=== PATIENT | female | born 1995 | race Caucasian/White ===

== ENCOUNTER 2022-07-12 21:01 | Inpatient (IN) | payer BC, OTHER ==
[2022-07-12] VITALS (9 sets, daily range): BP systolic 108–136; BP diastolic 56–96; PULSE 67–96; TEMP 97.5
[~2022-07-12] VITALS: Ht 160 cm; Wt 89.5 kg
[~2022-07-12 21:01] MED LIST: PRENATAL TABLET PO
--- NOTE | 2022-07-12 21:10 | NUR ---
PT TO UNIT AMBULATORY WITH SPOUSE WITH COMPLAINTS OF CTX THAT HAVE BECOME MORE INTENSE SINCE APPROXIMATELY 1900 THIS EVENING. PT ORIENTED TO ROOM, CHANGED INTO GOWN. EFMX2 APPLIED. PT DENIES LOF OR VAGINAL BLEEDING. VS OBTAINED, SVE PERFORMED.
[2022-07-12 21:58] LABS: BASO % 0.3 % (0.0-2.0); EOS # 0.1 K/mm3 (0.0-0.7); EOS % 0.5 % (0.0-4.0); GRAN # 11.4 K/mm3 (1.4-6.5); GRAN % 76.1 % (42.2-75.2); HEMATOCRIT 38.7 % (37.0-47.0); HEMOGLOBIN 13.1 g/dl (12.5-16.0); LYMPH # 2.6 K/mm3 (1.2-3.4); LYMPH % 17.3 % (20.0-51.0); MEAN CELL VOLUME 86 fl (80.0-100.0); MEAN CORPUSCULAR HEMOGLOBIN 29 pg (27-31); MEAN CORPUSCULAR HGB CONC 34 g/dl (33.0-37.0); MEAN PLATELET VOLUME 11.2 fl (7.4-10.4); MONO # 0.8 K/mm3 (0.1-0.6); MONO % 5.4 % (1.7-9.3); PLATELET COUNT 225 K/mm3 (130-400); RED BLOOD COUNT 4.48 M/mm3 (4.10-5.30); REDCELL DISTRIBUTION WIDTH-CV 12.8 % (11.5-14.5)
--- NOTE | 2022-07-12 22:28 | NUR ---
220- Chapin SONI CRNA IN ROOM FOR EPIDURAL PLACEMENT, PT SITTING AT BEDSIDE. 2206- TEST GIVEN BY Chapin SONI CRNA. PT TOLERATED WELL. 2209- PT REPOSITIONED TO [facility]. 2214- THOMAS MOSESIANS IN ROOM, PT HAS HAD NO RELIEF FOLLOWING EPIDURAL PLACEMENT AT 2006. LAUREL GUZMAN TO REPLACE EPIDURAL. PT SITTING UP AT BEDSIDE. 2222- INTRATHECAL PLACED BY THOMAS, PT TOLERATED WELL. 2224- TEST DOSE GIVEN BY Chapin SONI CRNA. PT TOLERATED WELL. 2228- REPOSITIONED TO RIGHT WEDGE. PT STATES HER LEGS FEEL WARM AND TINGLING.
[2022-07-13] VITALS (51 sets, daily range): BP systolic 102–157; BP diastolic 56–99; PULSE 71–115; TEMP 97.7–99.5
--- NOTE | 2022-07-13 04:09 | NUR ---
IN ROOM TO EVALUATE PT AND PERFORM AROM. MEC FLUID NOTED.
--- NOTE | 2022-07-13 05:36 | NUR ---
3959- DR. HOWARD UPDATED ON PUSHING ABILITIES. PT IS PUSHING WELL BUT IS GETTING TIRED. PT IS 0 WHEN NOT PUSHING AND +1 WITH PUSHING. ASKED IF DR. HOWARD WOULD BE WILLING TO COME IN TO EVALUATE FOR POSSIBLE VACUUM ASSIST. DR. HOWARD CONCERNED OF LARGE BABY AND THAT ASSISTANCE WITH A VACUUM OR FORCEPS MAY LEAD TO SHOULDER DYSTOCIA. DR HOWARD STATES TO HAVE PT LABOR DOWN FOR APPROXIMATELY 45 MINUTES AND THEN CONTINUE PUSHING. 9228- PT UPDATED ON DR. HOWARD'S CONCERNS IF VACUUM ASSISTED DELIVERY, PT VERBALIZES UNDERSTANDING. REPOSITIONED TO [facility] TO LABOR DOWN. WILL REEVALUATE AT APPROXIMATELY 0615.
--- NOTE | 2022-07-13 06:30 | NUR ---
Rests in bed, alert. States still hurting. Let her know that she can push the button when having pain. Let her know that it will lock out so she cannot get to much.
--- NOTE | 2022-07-13 06:45 | NUR ---
States feeling better. Says the medication is working.
--- NOTE | 2022-07-13 07:00 | NUR ---
Rests in bed, alert. Denies any pain at this time. 0705 Dr. Miller called, see drParish notes please.
--- NOTE | 2022-07-13 07:20 | NUR ---
Rests in bed, alert. Pitocin 2 margie units iv started as ordered by Dr. Mliler.
--- NOTE | 2022-07-13 07:30 | NUR ---
Straight cath done per sterile technique. 0722 Dr. Miller here, pushes with contractions. Dr. Miller talked to patient about vaginal delivery verses delivery. States would like to keep trying.
--- NOTE | 2022-07-13 08:00 | NUR ---
Continues to push with contractions. Does take a few breaks with pushing.
--- NOTE | 2022-07-13 08:50 | NUR ---
Continues to push with contractions. Dr. Miller here. Pushes with patient. States to continue to push, doing well. Let Dr. Miller know that heart rate in the 140s, started with 120s. Also let him know that patient has a temperature of 99.3. No new orders.
--- NOTE | 2022-07-13 09:00 | NUR ---
Continues to push with contractions. Head moving down more.
--- NOTE | 2022-07-13 09:20 | NUR ---
Dr. Miller here to evaluate. Pushes with patient. Let him know its been awhile since this nurse straight cath patient.
--- NOTE | 2022-07-13 09:30 | NUR ---
Straight cath done by Dr. Miller. Continues to push with contractions. [address] Miller, pushes with contractions. One pop off noted. Doctor Angela talks to patient about section. 0950 section called. Patient suprapubic hair clipped. To o.r. via bed with this nurse and josé manuel Mock. Patient move to the o.r. bed, alert.
--- NOTE | 2022-07-13 11:05 | NUR ---
To pacu via bed with this nurse and anesthesia. Alert, stable, spouse at bedside.
--- NOTE | 2022-07-13 11:20 | NUR ---
Rests in bed, alert, holds baby skin to skin. Family in for visit.
--- NOTE | 2022-07-13 11:35 | NUR ---
Rests in bed, alert. To room 209 via bed with this nurse and father.
--- NOTE | 2022-07-13 11:45 | NUR ---
To room 209 via bed, alert, holds baby. Denies any pain at this time. Let patient know that she has pain medication when ready.
--- NOTE | 2022-07-13 12:15 | NUR ---
Continues to breast feed. Does well, nurses shield used, has inverted nipples.
--- NOTE | 2022-07-13 13:15 | NUR ---
Rests in bed, alert. Tylenol 1000 mg, roxycodiene 5 mg given per request and as ordered.
--- NOTE | 2022-07-13 13:20 | NUR ---
Rests in bed, alert. Baby back in room in open crib.
--- NOTE | 2022-07-13 17:00 | NUR ---
Rests in bed, alert. Assist patient with . This nurse helps baby with . Nipple shield used. Baby fussy.
--- NOTE | 2022-07-13 18:00 | NUR ---
Ambulates to the bathroom. Sykes catheter taken out. Per-care given. A small clot noted in stool. Fundal massage given when in bed.
[2022-07-14 00:13] VITALS: BP 109/67; PULSE 78; TEMP 97.7
[2022-07-14 05:00] VITALS: BP 117/64; PULSE 83; TEMP 97.7
[2022-07-14 07:02] LABS: HEMATOCRIT 27.8 % (37.0-47.0); HEMOGLOBIN 9.3 g/dl (12.5-16.0)
[2022-07-14 07:30] VITALS: BP 115/63; PULSE 78; TEMP 98.1
--- NOTE | 2022-07-14 09:57 | NUR ---
Initial visit; Parents thanked [employer] for offering congratulations and God's blessings for the of their son. Pl[employer] M[employer] thanked family for choosing [facility].
[2022-07-14 16:00] VITALS: BP 112/70; PULSE 82; TEMP 97.7
[2022-07-14 21:05] VITALS: BP 107/64; PULSE 96; TEMP 97.9
[2022-07-15 07:00] VITALS: BP 121/72; PULSE 92; TEMP 97.9
[2022-07-15] MEDS ORDERED: TYLENOL 500MG500 MG PO (08:27)
[2022-07-15] MEDS ORDERED: ROXICODONE 55 MG/TAB PO (08:27)
[2022-07-15] MEDS ORDERED: IBU600 MG PO (08:27)
== END 2022-07-15 14:00 | disposition home or self-care (01) | DRG 787 ==
LOC: LDRO 21:01 → LDR 21:27 → OB 21:27
PROVIDERS: Obstetrics & Gynecology; ADMIT Obstetrics & Gynecology
PROC: 10D00Z1 Extraction of Products of Conception, Low, Open Approach (ICD-10-PCS; principal; 2022-07-13)
DX: O48.0 Post-term pregnancy (principal); D62 Acute posthemorrhagic anemia; Z3A.40 40 weeks gestation of pregnancy; Z37.0 Single live birth; O99.824 Streptococcus B carrier state complicating childbirth; O36.63X0 Maternal care for excessive fetal growth, third trimester, not applicable or unspecified; O77.0 Labor and delivery complicated by meconium in amniotic fluid; O90.81 Anemia of the puerperium; O76 Abnormality in fetal heart rate and rhythm complicating labor and delivery; O63.1 Prolonged second stage (of labor); Z91.018 Allergy to other foods; Z23 Encounter for immunization
CPT/HCPCS: J0690; J1100; J1885; J2401; J2405; J2540; J2590; J2795; J7120